=== PATIENT | male | born 1985 | race Caucasian/White ===

== ENCOUNTER 2018-07-08 10:56 | Emergency (ER) | payer BC ==
[2018-07-08] MEDS ORDERED: SODIUM CHLORIDE 0.9% 1,000 ML IV STA (11:32)
[2018-07-08] MEDS ORDERED: ONDANSETRON 4 MG/2 ML VIAL IVP STA (11:32)
[2018-07-08] MEDS ORDERED: KETOROLAC 30 MG/ML 1 ML VIAL IVP STA (11:32)
[2018-07-08] MEDS ORDERED: TAMSULOSIN 0.4 MG CAP.ER.24H PO STA (11:33)
--- NOTE | 2018-07-08 11:33 | ED ---
Abdominal Pain HPI - General Chief Complaint: Abdominal Pain Stated Complaint: Flank pain Time Seen by Provider: 07/08/18 11:23 Source: patient, RN notes reviewed, old records reviewed Mode of arrival: ambulatory Limitations: no limitations - History of Present Illness Initial Comments: This is a 32-year-old male presents emergency Department with sudden onset of left-sided flank pain radiating towards his groin approximately 2 hours ago. Patient states that he feels nauseous. Family history of kidney stones he's never had a kidney stone himself. He surgical history includes right ORIF of his wrist and vasectomy.. He denies any change in urination or bowel habits. Patient states that he feels nauseated but has had no specific vomiting. Patient otherwise is in good health. - Related Data Home Medications Medication Instructions Recorded Confirmed Acetaminophen [Tylenol] 325 mg PO Q4H PRN 07/08/18 07/08/18 Multivitamin,Therapeutic [Thera] 1 tab PO DAILY 07/08/18 07/08/18 Previous Rx's Medication Instructions Recorded HYDROcodone/APAP 5-325MG [[place]ette 1 tab PO Q6HR PRN 3 Days #12 tab 07/08/18 5-325] Ketorolac [Toradol] 10 mg PO TID #15 tab 07/08/18 Ondansetron Odt [Zofran Odt] 4 mg PO Q8HR PRN #12 tab 07/08/18 Tamsulosin HCl [Flomax] 0.4 mg PO DAILY #10 cap 07/08/18 Allergies Allergy/AdvReac Type Severity Reaction Status Date / Time No Known Allergies Allergy Verified 07/08/18 11:47 Review of Systems ROS Statement: Those systems with pertinent positive or pertinent negative responses have been documented in the HPI. ROS Other: All systems not noted in ROS Statement are negative. Past Medical History Past Medical History: No Reported History History of Any Multi-Drug Resistant Organisms: None Reported Past Surgical History: Orthopedic Surgery Additional Past Surgical History / Comment(s): vasectomy Past Psychological History: No Psychological Hx Reported Smoking Status: Never smoker Past Alcohol Use History: Occasional Past Drug Use History: None Reported General Exam - General Exam Comments Initial Comments: This is a 32-year-old male. Alert and oriented. No significant distress. Limitations: no limitations General appearance: alert, in no apparent distress Head exam: Present: atraumatic, normocephalic, normal inspection Eye exam: Present: normal appearance, PERRL, EOMI. Absent: scleral icterus, conjunctival injection, periorbital swelling ENT exam: Present: normal exam, mucous membranes moist Neck exam: Present: normal inspection. Absent: tenderness, meningismus, lymphadenopathy Respiratory exam: Present: normal lung sounds bilaterally. Absent: respiratory distress, wheezes, rales, rhonchi, stridor Cardiovascular Exam: Present: regular rate, normal rhythm, normal heart sounds. Absent: systolic murmur, diastolic murmur, rubs, gallop, clicks GI/Abdominal exam: Present: soft, tenderness (Left lower quadrant and left CVA tenderness.), normal bowel sounds. Absent: distended, guarding, rebound, rigid Extremities exam: Present: normal inspection, full ROM, normal capillary refill. Absent: tenderness, pedal edema, joint swelling, calf tenderness Back exam: Present: normal inspection Course Vital Signs 07/08/18 11:08 Temperature 97.6 F Pulse Rate 60 Respiratory 18 Rate Blood Pressure 154/94 O2 Sat by Pulse 99 Oximetry Medical Decision Making - Medical Decision Making This patient's a 32-year-old male persist emergency department with sudden onset of left-sided flank pain rating towards the groin 2 hours. At this time Patient is a CVA tenderness. Vital signs are stable. Lab work obtained. CT abdomen and pelvis without contrast shows evidence of 4 mm left ureter stone causing hydronephrosis. Patient is given Toradol and Zofran and IV fluids. Patient reports this pain is now 0 out of 10. Lab work was reviewed and unremarkable. Mild hematuria. No sign of infection with any urine. At this time Patient be discharged with pain management, referral for urology. Discussed return parameters. Patient agrees treatment plan will comply. Return parameters were discussed. - Lab Data Result diagrams: 07/08/18 12:35 07/08/18 12:35 Lab Results 07/08/18 07/08/18 07/08/18 Range/Units 12:35 12:35 12:44 WBC 9.0 (3.8-10.6) k/uL RBC 4.95 (4.30-5.90) m/uL Hgb 15.4 (13.0-17.5) gm/dL Hct 46.1 (39.0-53.0) % MCV 93.0 (80.0-100.0) fL MCH 31.2 (25.0-35.0) pg MCHC 33.5 (31.0-37.0) g/dL RDW 11.8 (11.5-15.5) % Plt Count 197 (150-450) k/uL Neutrophils % 78 % Lymphocytes % 16 % Monocytes % 5 % Eosinophils % 1 % Basophils % 0 % Neutrophils # 7.0 (1.3-7.7) k/uL Lymphocytes # 1.4 (1.0-4.8) k/uL Monocytes # 0.4 (0-1.0) k/uL Eosinophils # 0.1 (0-0.7) k/uL Basophils # 0.0 (0-0.2) k/uL Sodium 139 (137-145) mmol/L Potassium 4.8 (3.5-5.1) mmol/L Chloride 105 (98-107) mmol/L Carbon Dioxide 27 (22-30) mmol/L Anion Gap 7 mmol/L BUN 20 (9-20) mg/dL Creatinine 0.90 (0.66-1.25) mg/dL Est GFR (CKD-EPI)AfAm >90 (>60 ml/min/1.73 sqM) Est GFR (CKD-EPI)NonAf >90 (>60 ml/min/1.73 sqM) Glucose 98 (74-99) mg/dL Calcium 9.7 (8.4-10.2) mg/dL Total Bilirubin 0.7 (0.2-1.3) mg/dL AST 27 (17-59) U/L ALT 39 (21-72) U/L Alkaline Phosphatase 38 (38-126) U/L Total Protein 6.9 (6.3-8.2) g/dL Albumin 4.6 (3.5-5.0) g/dL Amylase 37 (30-110) U/L Lipase 114 (23-300) U/L Urine Color Light Yellow Urine Appearance Clear (Clear) Urine pH 6.0 (5.0-8.0) Ur Specific [place] 1.007 (1.001-1.035) Urine Protein Negative (Negative) Urine Glucose (UA) Negative (Negative) Urine Ketones Negative (Negative) Urine Blood Moderate H (Negative) Urine Nitrite Negative (Negative) Urine Bilirubin Negative (Negative) Urine Urobilinogen <2.0 (<2.0) mg/dL Ur Leukocyte Esterase Negative (Negative) Urine RBC <1 (0-5) /hpf Urine WBC 1 (0-5) /hpf Urine Mucus Rare H (None) /hpf - Radiology Data Radiology results: report reviewed Evidence of an obstructive left ureteral calculus. Renal calculus measures approximately 4-5 mm. Associated left-sided hydroureter hydronephrosis. Circumflex, May aortic left renal vein is present. KUB shows evidence of left renal calculus not seen on plain film. Disposition Clinical Impression: Left ureteral stone Disposition: HOME SELF-CARE Condition: Good Instructions: Ureteral Stones (ED) Additional Instructions: Patient is follow-up promptly with primary care physician and urology. Drink plenty of fluids. Take the medication as prescribed. Return to the emergency department if any alarming signs or symptoms occur. Prescriptions: HYDROcodone/APAP 5-325MG [[place]ette 5-325] 1 tab PO Q6HR PRN 3 Days #12 tab PRN Reason: Pain Ketorolac [Toradol] 10 mg PO TID #15 tab Ondansetron Odt [Zofran Odt] 4 mg PO Q8HR PRN #12 tab PRN Reason: Nausea Tamsulosin HCl [Flomax] 0.4 mg PO DAILY #10 cap Is patient prescribed a controlled substance at d/c from ED?: Yes If prescribed controlled substance>3 days was MAPS reviewed?: Prescribed <3 Days If opioid is for acute pain is fill amount 7 days or less?: Yes If Rx opioid, was Start Talking consent form obtained?: Yes Referrals: None,Stated [Primary Care Provider] - 1-2 days Andre Jerry MD [STAFF PHYSICIAN] - 1-2 days Time of Disposition: 13:58
--- NOTE | 2018-07-08 12:19 | XR ---
Abdomen HISTORY: Left flank pain Frontal view of the abdomen on 2 images correlated to prior exam dated 07/08/2018 Lung bases are not included on the exam. Kidney stone in the left ureter is not seen with certainty. No evident bowel obstruction or pneumoperitoneum. Probable phlebolith present in the left hemipelvis. IMPRESSION: Left ureteral calculus not seen on plain film.
--- NOTE | 2018-07-08 12:24 | CT ---
EXAMINATION TYPE: CT abdomen pelvis wo con DATE OF EXAM: 07/08/2018 COMPARISON: Plain film same date HISTORY: Left sided flank pain CT DLP: 536.6 mGycm Automated exposure control for dose reduction was used. TECHNIQUE: Helical acquisition of images from the lung bases through the pelvis. FINDINGS: LUNG BASES: No significant abnormality is appreciated. AORTA: No significant abnormality is appreciated. LIVER/GB: No significant abnormality is appreciated. PANCREAS: No significant abnormality is seen. SPLEEN: No significant abnormality is seen. ADRENALS: No significant abnormality is seen. KIDNEYS: There is a mid left ureteral calculus present measuring approximately 4-5 mm. There is assoc iated left-sided hydroureter, hydronephrosis. Circumaortic left renal vein is present. REPRODUCTIVE ORGANS: No significant abnormality is seen. Small right inguinal hernia suspected. URINARY BLADDER: No significant abnormality is seen. BOWEL: No significant abnormality is seen. FREE AIR: No Free Air is visible. ASCITES: None visible. PELVIC ADENOPATHY: None visualized. RETROPERITONEAL ADENOPATHY: No Retroperitoneal Adenopathy visible. OSSEOUS STRUCTURES: No significant abnormality is seen. IMPRESSION: OBSTRUCTIVE LEFT URETERAL CALCULUS.
[2018-07-08 13:04] LABS: Basophils % (A) 0 %; Eosinophils # (A) 0.1 k/uL (0-0.7); Eosinophils % (A) 1 %; HCT 46.1 % (39.0-53.0); HGB 15.4 gm/dL (13.0-17.5); Lymphocytes # (A) 1.4 k/uL (1.0-4.8); Lymphocytes % (A) 16 %; MCH 31.2 pg (25.0-35.0); MCHC 33.5 g/dL (31.0-37.0); Mean Platelet Volume 6.8; Monocytes # (A) 0.4 k/uL (0-1.0); Monocytes % (A) 5 %; Neutrophils % (A) 78 %; Platelet Count 197 k/uL (150-450); RBC 4.95 m/uL (4.30-5.90); RDW 11.8 % (11.5-15.5)
[2018-07-08 13:22] LABS: ALT 39 U/L (21-72); AST 27 U/L (17-59); Albumin 4.6 g/dL (3.5-5.0); Alkaline Phosphatase 38 U/L (38-126); Amylase 37 U/L (30-110); Anion Gap 7 mmol/L; Blood Urea Nitrogen 20 mg/dL (9-20); Calcium 9.7 mg/dL (8.4-10.2); Carbon Dioxide 27 mmol/L (22-30); Chloride 105 mmol/L (98-107); Glucose 98 mg/dL (74-99); Lipase 114 U/L (23-300); Potassium 4.8 mmol/L (3.5-5.1); Sodium 139 mmol/L (137-145); Total Bilirubin 0.7 mg/dL (0.2-1.3); Total Protein 6.9 g/dL (6.3-8.2)
[2018-07-08 13:24] LABS: Appearance,Urine Clear (Clear); Bilirubin,Urine Negative (Negative); Blood,Urine Moderate (Negative); Color,Urine Light Yellow; Glucose,Urine (UA) Negative (Negative); Ketones,Urine Negative (Negative); Leukocyte Esterase,Urine Negative (Negative); Mucus,Urine Rare /hpf; Nitrite,Urine Negative (Negative); Protein,Urine Negative (Negative); RBC,Urine <1 /hpf (0-5); Specific Gravity,Urine 1.007 (1.001-1.035); Urobilinogen,Urine <2.0 mg/dL (<2.0); WBC,Urine 1 /hpf (0-5)
[2018-07-08 14:23] VITALS: BP 122/64; PULSE 55; RESP 15; TEMP 97.4
== END 2018-07-08 14:29 | disposition home or self-care (01) ==
LOC: EC 10:56
DX: N13.2 Hydronephrosis with renal and ureteral calculous obstruction (principal); Z98.52 Vasectomy status
CPT/HCPCS: 36415; 80053; 82150; 83690; 85025; 81001; 74018; 74176; 99285; 96374; 96375; 96361 ×2; J2405; J1885

== ENCOUNTER → 2018-08-25 | Outpatient (CLI) | payer BC ==
--- NOTE | 2018-08-25 10:15 | US ---
EXAMINATION TYPE: US kidneys/renal and bladder DATE OF EXAM: 08/25/2018 COMPARISON: CT July 08, 2018 CLINICAL HISTORY: N20.1 hydronephrosis. EXAM MEASUREMENTS: Right Kidney: 11.7 x 4.6 x 4.9 cm Left Kidney: 12.0 x 6.0 x 5.6 cm Right Kidney: No hydronephrosis or masses seen Left Kidney: hydro still evident Bladder: wnl Bilateral Jets seen: Yes There is no evidence for hydronephrosis at this point in time in the right kidney. No nephrolithiasi s is seen. No masses are identified. The urinary bladder is anechoic. Bilateral ureteral jets are seen. Adjacent liver is heterogeneously hyperechoic consistent with mild diffuse fatty infiltration o n initial images. IMPRESSION: Stable mild to moderate left-sided hydronephrosis, cannot exclude persistent partial obstructing 4 to 5 mm left mid ureter calculus. Correlate clinically.
== END | disposition home or self-care (01) ==
LOC: RADUSWWP 09:25
PROVIDERS: ATTEND Urology
DX: N13.30 Unspecified hydronephrosis (principal)
CPT/HCPCS: 76770

== ENCOUNTER → 2018-10-02 | Outpatient (CLI) | payer BC ==
--- NOTE | 2018-10-02 12:31 | CT ---
EXAMINATION TYPE: CT abdomen pelvis wo con DATE OF EXAM: 10/02/2018 COMPARISON: 07/08/2018 INDICATION: Follow up scan per patient, history of calculus of ureter DLP: 588 mGycm, Automated exposure control for dose reduction was used. CONTRAST: mL of . Study performed without Oral Contrast TECHNIQUE: Axial images were obtained from above the diaphragm to the pubic rami in the axial plane a t 5 mm thick sections. Reconstructed images are reviewed on the computer in the coronal plane. FINDINGS: Limited CT sections are obtained the lung bases. The lung bases are clear. CT ABDOMEN: Liver: Normal Spleen: Normal Pancreas: Normal Adrenal glands: The adrenal glands are normal. Gallbladder: Normal Kidneys: No masses are evident. No hydronephrosis is present. No cysts are present. Previous mid l eft ureteral stone has moved on the current examination appears to reside within the left hemipelvis. This is best visualized series 6 image 57 and resides above the left ureterovesical junction. Hydron ephrosis and hydroureter are not evident. Aorta: Vascular calcification is within the aorta. Inferior vena cava: Normal. CT PELVIS: Loops of bowel within the abdomen and pelvis are normal. There are loops of bowel which are incom pletely distended or lack oral contrast limiting their evaluation. Appendix: Normal as visualized. Urinary bladder: Decompressed with limited evaluation. Genitourinary structures: Prostate is unremarkable. Osseous structures: No suspicious lytic or sclerotic lesions. Phlebolith remains within the left lc pelvis. IMPRESSIONS: 1. Ureteral stone has moved into the left hemipelvis above the ureterovesical junction. Hydronephros is and hydroureter appears resolved.
== END | disposition home or self-care (01) ==
LOC: RADCTMAIN 09:31
PROVIDERS: ATTEND Urology
DX: N20.1 Calculus of ureter (principal)
CPT/HCPCS: 74176

== ENCOUNTER → 2018-12-08 | Outpatient (CLI) | payer BC ==
--- NOTE | 2018-12-09 08:45 | XR ---
Abdomen HISTORY: Calculus of ureter Frontal view of the abdomen submitted and correlated to prior exam 07/08/2018, CT abdomen pelvis 018, ultrasound kidneys 12/08/2017 There is a calcification at the level of the distal left ureter measuring approximately 5 to 6 mm as on prior CT. Probable phlebolith again noted in the left hemipelvis. Lung bases are not included in t he exam. No pneumoperitoneum or bowel obstruction. IMPRESSION: Distal left ureteral calculus.
--- NOTE | 2018-12-09 08:49 | US ---
EXAMINATION TYPE: US kidneys/renal and bladder DATE OF EXAM: 12/08/2018 COMPARISON: Prior renal ultrasound 08/25/2018. Plain film abdomen 12/08/2018. CLINICAL HISTORY: N20.1 Calculus of ureter. Hx of left renal stone. Patient states no pain at this t thi. EXAM MEASUREMENTS: Right Kidney: 11.1 x 5.4 x 5.4 cm Left Kidney: 11.2 x 5.3 x 6.1 cm Right Kidney: No hydronephrosis or masses seen Left Kidney: No hydronephrosis or masses seen Bladder: distended, wnl as visualized Bilateral Jets seen There is no evidence for hydronephrosis at this point in time. No nephrolithiasis is seen. No ernestina s are identified. The urinary bladder is anechoic. Bilateral ureteral jets are seen. Cortical medul lu differentiation is maintained. IMPRESSION: Renal sizes as described. Appearance of hydronephrosis in left kidney is improved compared to prior u ltrasound.
== END | disposition home or self-care (01) ==
LOC: RADUSMAIN 16:05
PROVIDERS: ATTEND Urology
DX: N20.1 Calculus of ureter (principal)
CPT/HCPCS: 74018; 76770